=== PATIENT | female | born 1965 ===

== ENCOUNTER 2018-01-07 08:18 | Day surgery (SDC) | payer MEDICAID ==
[2017-12-18 11:15] VITALS: BMI 25.4
[2018-01-07] MEDS ORDERED: Lactated Ringer's 1,000 ML IV ONE (09:34)
[2018-01-07] MEDS ORDERED: Propofol 10 mg/ml Inj (20 ML) ONE (10:57)
[2018-01-07] MEDS ORDERED: Lidocaine 1% 5ml Abboject IV ONE (10:58)
[2018-01-07] MEDS ORDERED: Lidocaine 2% Jelly (5 ml) TOP ONE (10:58)
[2018-01-07] MEDS ORDERED: Midazolam 2 MG/2 ML VIAL ONE (10:58)
[2018-01-07] MEDS ORDERED: Lactated Ringer's 1,000 ML IV SCH (11:45)
[2018-01-07] MEDS ORDERED: Oxycodone/Acetaminophen 5/325 mg Tab PO PRN (12:16)
[2018-01-07 13:10] VITALS: O2SAT 100
--- NOTE | 2018-01-07 13:20 | OP ---
PROCEDURE DATE: 01/07/2018 PREOPERATIVE DIAGNOSES: Irregular vaginal bleeding, menometrorrhagia, perimenopausal female, attempted endometrial biopsy in the office. The patient was unable to tolerate the procedure in the office. POSTOPERATIVE DIAGNOSES: Irregular vaginal bleeding, menometrorrhagia, perimenopausal female, attempted endometrial biopsy in the office. The patient was unable to tolerate the procedure in office. PROCEDURES PERFORMED: Hysteroscopy and D and C. SURGEON: Aubrey Baird MD TYPE OF ANESTHESIA: General. ANESTHESIA ADMINISTERED BY: Honorio Buckley MD ESTIMATED BLOOD LOSS: Minimal. URINE OUTPUT: The patient was straight cath'd prior to starting the procedure. INTRAVENOUS FLUID INTAKE: The patient received approximately 150 mL of D5 LR intraoperatively. OPERATIVE FINDINGS: Uterus extremely anteverted secondary to previous sections, no adnexal masses noted, the vagina was pink, cervix was smooth. On hysteroscopic findings, both ostia were visualized. The uterine cavity was normal appearing. No polyps or fibroids identified within the cavity. DESCRIPTION OF PROCEDURE: After informed consent was obtained, the patient was taken to the operating room where she was given general anesthesia. She was then prepped and draped in a normal sterile fashion. The patient was placed in the [facility] prepped and draped in a normal sterile fashion. A weighted speculum was inserted into the vagina. The cervix was visualized and grasped with a single tooth tenaculum. The cervix was then gently dilated. Hysteroscope was inserted into the uterine cavity with the findings noted above. A sharp curettage was then performed. Endometrial curettings were sent to pathology. All instruments were then removed from the vagina. The patient was awaken from general anesthesia and taken to recovery room in a wake and stable condition. Aubrey Baird MD ODALIS
[2018-01-07 13:57] VITALS: TEMP 97.5
[2018-01-07 15:29] VITALS: BP 116/52; PULSE 75; RESP 18
--- NOTE | 2018-01-07 16:24 | CP.SDSHP ---
Same Day Surgery H & P - Allergies Allergies: Allergies No Known Allergies Allergy (Verified 12/18/17 11:15) - Physical Exam Vital Signs: Vital Signs 01/07/18 01/07/18 01/07/18 09:15 09:58 11:30 Temperature 98.3 F 97.1 F L Pulse Rate 78 78 100 H Respiratory 18 Rate Blood Pressure 118/64 95/53 L O2 Sat by Pulse 98 100 Oximetry 01/07/18 01/07/18 01/07/18 11:45 12:00 12:15 Temperature 97.3 F L Pulse Rate 92 H 71 68 Respiratory 18 18 20 Rate Blood Pressure 99/69 L 101/55 L 105/63 O2 Sat by Pulse 100 99 98 Oximetry 01/07/18 01/07/18 01/07/18 12:30 12:45 13:00 Temperature 97.3 F L 98.2 F Pulse Rate 66 68 68 Respiratory 20 20 20 Rate Blood Pressure 107/54 L 128/65 130/62 O2 Sat by Pulse 99 97 100 Oximetry 01/07/18 01/07/18 01/07/18 13:10 13:56 15:00 Temperature 97.5 F L 97.5 F L Pulse Rate 66 75 Respiratory 20 18 Rate Blood Pressure 118/65 116/52 L O2 Sat by Pulse 100 100 100 Oximetry Short Stay Discharge - Short Stay Discharge Admitting Diagnosis/Reason for Visit: N93.9 Referrals: Raven Alberts [Primary Care Provider] - Additional Instructions (Diet, Activity): Status post hysteroscopy D&C Doing well Discharge home Follow up with Sully Baird in one week Motion as needed
--- NOTE | 2018-01-08 08:50 | CARD ---
APPROVED REPORT EKG Measurement Heart [id number] ME [id number] <Conclusion> Normal sinus rhythm Nonspecific ST and T wave abnormality Abnormal ECG
== END 2018-01-07 15:30 | disposition home or self-care (01) ==
LOC: H.OPSURG 08:18
PROVIDERS: ATTEND Obstetrics & Gynecology Gynecology
DX: N92.1 Excessive and frequent menstruation with irregular cycle (principal); I10 Essential (primary) hypertension; N93.8 Other specified abnormal uterine and vaginal bleeding
CPT/HCPCS: 58558; 88305; 93005; J2250; J2405; J2704; J2765; J3010; J7030; J7120

== ENCOUNTER 2018-04-17 06:14 | Observation (INO) | payer MEDICAID ==
[2018-04-09 08:37] VITALS: BMI 25.2
[2018-04-17] MEDS ORDERED: Bupivacaine HCl 0.25% PF (30 ml) Inj ONE (07:37)
[2018-04-17] MEDS ORDERED: Propofol 10 mg/ml Inj (20 ML) ONE (07:54)
[2018-04-17] MEDS ORDERED: Midazolam 2 MG/2 ML VIAL ONE (07:55)
[2018-04-17] MEDS ORDERED: ePHEDrine 50 mg/ml Inj ONE (07:55)
[2018-04-17] MEDS ORDERED: Rocuronium 10 mg/ml (5 ml) ONE (07:55)
[2018-04-17] MEDS ORDERED: Phenylephrine 10 mg/ml Inj ONE ×2 (07:55→08:06)
[2018-04-17] MEDS ORDERED: Neostigmine 1:1000 (1 mg/ml) Inj ONE (08:06)
[2018-04-17] MEDS ORDERED: Succinylcholine 200 mg/10 ml Inj IV ONE (08:07)
[2018-04-17] MEDS ORDERED: Lactated Ringer's 1,000 ML IV ONE ×3 (08:25→13:15)
[2018-04-17] MEDS ORDERED: Morphine 1 mg/ml preservative-free Inj(Duramorph) ONE (08:47)
[2018-04-17] MEDS ORDERED: Esmolol 100 mg/10ml Inj IV ONE (08:53)
--- NOTE | 2018-04-17 11:31 | PCM.SURG1 ---
Surgeon's Initial Post Op Note - Surgeon's Notes Surgeon: Dr. Baird Sewing Department Supervisor: Dr. Shea, Mya Segovia PGY3 Type of Anesthesia: General Endo, Local Anesthesia Administered By: Dr. Patrick Pre-Operative Diagnosis: pelvic pain Operative Findings: Adhesions, fibroids Post-Operative Diagnosis: Fibroids, adhesions Operation Performed: robotic hysterectomy, b/l salphygectomy, lysis of adhesion Specimen/Specimens Removed: uterus, b/l uterine tubes. Estimated Blood Loss: EBL {In ML}: 50 Drains Used: No Drains Post-Op Condition: Good Date of Surgery/Procedure: 04/17/18 Time of Surgery/Procedure: 11:31
[2018-04-17] MEDS ORDERED: DiphenhydrAMINE 50 mg/ml Inj IVP PRN (11:36)
[2018-04-17] MEDS ORDERED: HYDROmorphone 1 mg/ml ISec IM PRN (11:37)
[2018-04-17] MEDS ORDERED: Oxycodone/Acetaminophen 5/325 mg Tab PO PRN (11:37)
[2018-04-17] MEDS ORDERED: Sodium Chloride 0.9% 1,000 ML IV SCH (11:45)
[2018-04-17] MEDS: HYDROmorphone 1 mg/ml ISec IVP PRN ×3 (11:45→13:20)
[2018-04-17] MEDS ORDERED: HYDROmorphone 1 mg/ml ISec ONE (11:45)
[2018-04-17 14:03] LABS: MEAN CELL VOLUME 81.6 fl (81.0-99.0); MEAN CORPUSCULAR HEMOGLOBIN 26.2 pg (27.0-31.0); MEAN CORPUSCULAR HGB CONC 32.1 g/dL (33.0-37.0); RBC 3.81 Mil/uL (3.80-5.20); RED CELL DISTRIBUTION WIDTH 17.6 % (11.5-14.5); WHITE BLOOD COUNT 11.8 K/uL (4.8-10.8)
[2018-04-17] MEDS: Naloxone 0.4 mg/ml Inj (Adult) IVP PRN ×2 (15:18→15:25)
[2018-04-17] MEDS: cefOXitin Sodium 1 GM in Sodium Chloride 0.9% 100 ML IVPB SCH (19:58)
[2018-04-17] MEDS: Lactated Ringer's 1,000 ML IV SCH (20:05)
[2018-04-17] MEDS ORDERED: ceFAZolin 1 GM in Sodium Chloride 0.9% 100 ML IVPB SCH (21:00)
[2018-04-18] MEDS: cefOXitin Sodium 1 GM in Sodium Chloride 0.9% 100 ML IVPB SCH ×2 (03:21→10:08)
[2018-04-18] MEDS: Lactated Ringer's 1,000 ML IV SCH (06:12)
[2018-04-18 15:49] VITALS: BP 114/61; PULSE 67; RESP 20; TEMP 97.7; O2SAT 98
--- NOTE | 2018-04-23 07:19 | OP ---
PROCEDURE DATE: 04/17/2018 PREOPERATIVE DIAGNOSES: Symptomatic fibroid uterus, history of previous section x4. POSTOPERATIVE DIAGNOSES: Symptomatic fibroid uterus, history of previous section x4, extensive bladder adhesions and scaring. PROCEDURES PERFORMED: Robotic-assisted hysterectomy, cystoscopy with stent placement, left ureterolysis, and salpingectomy. SURGEON: Aubrey Baird MD BUSINESS PROCESS ANALYST: King Zelaya MD ANESTHESIA ADMINISTERED BY: Dr. Borrego. ESTIMATED BLOOD LOSS: 150 mL. URINE OUTPUT: Mohan catheter put out approximately 700 mL of clear urine. INTRAVENOUS FLUID INTAKE: The patient received approximately 2 liters of D5 LR intraoperatively. OPERATIVE FINDINGS: A large 18-week size fibroid, normal ovaries and tubes, and extensive anterior bladder adhesions secondary to multiple deliveries. DESCRIPTION OF PROCEDURE: After informed consent was obtained, the patient was taken to the operating room where she was given general anesthesia. She was then prepped and draped in a normal sterile fashion. The external urethra was then identified. The cystoscope was inserted. The bladder was surveyed. The dome was noted to be intact. Both the ureteral orifices were identified. The right ureteral orifice was then stented. A 5 mL of ICG Green was injected. A similar procedure was performed on the left. The precaution was taken secondary to the patient's history of multiple deliveries and anticipated abnormal anatomy. Attention was then turned to the vagina where a speculum was inserted. The cervix was identified and grasped with a tenaculum. The cervix was gently dilated. A Anturisare uterine manipulator was inserted into the uterine cavity as a means to manipulate the uterus. A Mohan catheter was then inserted into the bladder to monitor the patient's urinary output. Attention was then turned to approximately 7 cm superior to the umbilicus where a 5-mm incision was made after the infusion of Marcaine where an 8-mm incision was made. The abdomen was tented upward, and the Veress needle was inserted into the abdominal cavity. Placement was confirmed with the fluid-filled syringe. The abdomen was then insufflated to 15 mmHg. The Veress needle was removed and an 8-mm robotic port was introduced into the abdominal cavity. Placement was confirmed with the laparoscope. The abdomen was then surveyed with the findings noted above. The uterus was noted to have a very irregular contour. There were normal ovaries and tubes. There were extensive anterior adhesions secondary to the patient's multiple deliveries. Attention was then turned to approximately 5 cm superior to the right anterior iliac crest. Marcaine was infused, an 8-mm incision was made, and a robotic port was introduced under direct visualization. Similar procedure was performed on the left. Attention was then turned to approximately 10 cm right and lateral to the umbilicus. Marcaine was infused, an 8-mm incision was made, and a robotic port was introduced under direct visualization. Attention was then turned to approximately 10 cm left and lateral to the umbilicus. Marcaine was infused, a 5-mm incision was made, and a 5-mm port was introduced under direct visualization. The table was then lowered. The patient was placed in steep Trendelenburg. The robot was docked to the patient without complication. The instruments used for the surgery were scissors, PK dissector, Rasta SutureCut, and ProGrasp. I then broke scrub and proceeded to the surgical consult. Attention was first directed to the right utero-ovarian ligament where it was serially coagulated and transected with the scissors. Attention was then turned to the right round ligament where it was serially coagulated and transected with the scissors. The anterior leaf of the broad ligament was then undermined and dissected with the scissors. As we approached the bladder anteriorly, we noted extensive bladder adhesions. At this point, we directed our attention posteriorly where the posterior leaf of the broad ligament was undermined with the PK dissector and excised down to the VCare cup posteriorly. We skeletonized the uterine arteries. We located the ureter using Firefly technology, and the ureter was noted to be raised superiorly. The ureter was noted to be elevated and entered the bladder superiorly secondary to the patient's multiple surgeries. The attention was then turned to the ureter along the left pelvic brim. It was identified with Firefly technology. The peritoneum was elevated. The peritoneum was entered and the retroperitoneal space was entered. We followed the ureter down anteriorly down to approximately the level of the uterine artery. The peritoneum was mobilized medially and the ureter laterally. Attention was then turned to the right utero-ovarian ligament, which in similar fashion was serially coagulated and transected with the scissors. Attention was turned to the round ligament that was serially coagulated, then transected with the scissors. The vesicouterine peritoneum was then undermined with the PK dissector and excised with the scissors. As we approached the anterior cup, there were adhesions noted. Attention was then turned to the right side where the anterior aspect of the bladder was elevated with the PK, and the bladder was gently mobilized using both sharp and blunt dissection with the scissors. The VCare cup was identified anteriorly. Then, we proceeded to mobilize the bladder inferiorly. As we approached the left side, there were dense adhesions noted. Those were meticulously dissected away using both sharp and blunt dissection. Firefly technology was used, and the ureter was located and identified inferiorly and clearly mobilized secondary to the ureterolysis. Attention was then turned to the left uterine artery where it was serially coagulated and transected at the level of the cup. Attention was then turned to the right uterine artery, which in similar fashion was serially coagulated and transected at the level of the cup. The cervix and vagina were then amputated from the cervix, and the uterus was then amputated from the vagina using the hot dennys. The specimen was delivered vaginally. The vaginal cuff was then closed with 2-0 Vicryl in a running locked fashion. Hemostasis was noted. All instruments were then removed from the abdomen. The skin was closed with 3-0 Biosyn and Dermabond. The cystoscopy was performed. The dome of the bladder was noted to be intact, and clear efflux of urine was noted. All sponge, lap, needle, and instrument counts were correct x2. The patient was taken to the recovery room in awake and stable condition. Aubrey Baird MD
== END 2018-04-18 17:25 | disposition home or self-care (01) ==
LOC: H.OPSURG 06:14 → H.PEDS 12:56 → H.OPSURG 14:47
PROVIDERS: ADMIT Obstetrics & Gynecology Gynecology; ATTEND Obstetrics & Gynecology Gynecology
DX: D25.9 Leiomyoma of uterus, unspecified (principal); I10 Essential (primary) hypertension; N92.0 Excessive and frequent menstruation with regular cycle; N32.89 Other specified disorders of bladder
CPT/HCPCS: 36415; 53899; 58571; 85027; 86850; 86900; 88305; 94770; C1729; G0378; J0330; J0690; J0694; J1170; J1885; J2001; J2250; J2270; J2310; J2370; J2405; J2704; J2710; J2765; J3010; J7030; J7120